=== PATIENT | male | born 1970 | race Caucasian/White ===

== ENCOUNTER 2017-01-05 17:12 | Emergency (ER) | payer OTHER ==
[2017-01-05] MEDS ORDERED: IBUPROFEN 600 MG TAB PO STA (17:38)
[2017-01-05] MEDS ORDERED: KETOROLAC TROMETHAMINE 60 MG/2 ML VIAL IM STA (17:43)
--- NOTE | 2017-01-05 17:50 | EMERGENCY ROOM VISIT NOTE ---
ED Visit Note First contact with patient: 17:21 CHIEF COMPLAINT: Shoulder injury HISTORY OF PRESENT ILLNESS: This 46-year-old male presents to the emergency department with complaint of right shoulder pain. He states that he was working in the barn when a bale of hay fell, he states he reached out trying to catch it and it landed on his arm and shoulder causing immediate pain in the right shoulder. He states that he has still been using his arm minimally since the injury 4 days ago, however the pain has been getting progressively worse. Today he went to see a chiropractor who took an x-ray and thought that his shoulder might be dislocated, tried to "put it back in" but the patient states he was in too much pain and this was unsuccessful, therefore he was sent to the emergency department for further management. Patient denies any numbness or tingling in the arm or hand. There is marked limitation of motion of the arm because of the pain. The patient did not hear a cracking the sound at the time of the injury. The pain is steady and severe and much worse with movement of the arm. He denies any other associated injuries. He did not take any medications for the pain. He last ate and drank at 12pm today. REVIEW OF SYSTEMS: Head: No headache or injury. Neck: No pain, stiffness, or swelling. Neurological: No headache, new changes in mental status, vertigo , focal weakness, numbness. Cardiovascular: No chest pain or palpitations. Respiratory: No cough or shortness of breath. PMH: The patient is healthy; there is no significant medical or surgical history. SOCIAL HISTORY: Patient lives at home. Non-smoker, no alcohol use. He identifies as Rastafari. PHYSICAL EXAM: Vital Signs: Reviewed nurse's notes, vital signs stable. GENERAL : Pleasant and cooperative, in no acute distress, but appears to be in pain, well-developed, well-nourished. MUSCULOSKELETAL: There is no deformity in the contour of the right shoulder and there are no vee deformities noted. There is no sulcus sign. There is tenderness over the anterior and lateral shoulder to palpation. The patient's range of motion is significantly limited due to pain. Supraspinatus strength 2/5. There is no clavicle tenderness. No tenderness of the humerus, elbow, wrist, or hand. Radiocommunications Technician strength 5/5. Radial pulse 2+. NECK: No tenderness to palpation over the cervical spine. Full range of motion of the neck without pain. HEART: Regular rate and rhythm without murmurs gallops or rubs. LUNGS: Clear to auscultation bilaterally without wheezes, rales or rhonchi. No accessory muscle use. No retractions. NEURO: The patient is alert and oriented to person, place, and time. Normal sensation to light and sharp touch. Capillary refill less than 2 seconds. IMAGING: R SHOULDER MIN 2 VIEWS ROUTINE, R CLAVICLE, R HUMERUS MIN 2 VIEWS ROUTINE HISTORY: 46 years-old Male possible dislocation of shoulder, AC joint, fracture acute right shoulder and right arm pain COMPARISON: None available TECHNIQUE: 3 views of the right shoulder, 2 views of the right clavicle and 2 views of the right humerus FINDINGS: SHOULDER: Linear 2.0 x 0.4 cm calcification adjacent to the greater tuberosity of the proximal humerus suggests rotator cuff calcific tendinosis, possibly infraspinatus. Mild glenohumeral and acromioclavicular osteoarthritis. No acute fracture or dislocation identified. No opaque foreign body. CLAVICLE: No acute fracture or dislocation. Imaged lung lei are clear. HUMERUS: There is no acute fracture or dislocation. Imaged lung lei appear clear. No opaque foreign body. IMPRESSION: 1. No acute fracture or dislocation of the right shoulder, clavicle or humerus. 2. Mild glenohumeral and acromioclavicular osteoarthritis. 3. Rotator cuff calcific tendinosis of the right shoulder, possibly the infraspinatus. EMERGENCY DEPARTMENT COURSE: I examined the patient. Differential diagnosis includes contusion, hematoma, dislocation, fracture, AC joint separation, rotator cuff injury, tendinitis/tendinopathy, among others. The patient was given IM Toradol for pain management and kept nothing by mouth in case of dislocation. An X-ray of the right clavicle, humerus, and shoulder were reviewed by myself and radiologist and show findings consistent with rotator cuff tendinosis/tendinitis, no acute fracture, no dislocation. On reexamination , the patient states his pain is improved after the Toradol. Patient has continued weakness and pain on examination of the infraspinatus and supraspinatus, unable to abduct the shoulder greater than 90. Given his exam findings, I am concerned for a rotator cuff tear in addition to the findings of tendinosis. The patient was placed in a sling for comfort and was given orthopedic referral information for close follow-up. The patient verbalized understanding of all follow-up plans. Patient was discharged home in stable condition and ambulatory. Problem List No known medical problems Current/Historical Medications No Active Prescriptions or Reported Meds Allergies Coded Allergies: No Known Allergies (Unverified , 01/05/17) Vital Signs Date Time Temp Pulse Resp B/P (MAP) Pulse Ox O2 Delivery O2 Flow Rate FiO2 01/05/17 20:29 78 16 118/76 98 01/05/17 18:48 72 20 134/76 98 Room Air 01/05/17 17:17 37.1 83 20 122/83 98 Room Air Medications Administered Medications (Trade) Dose Ordered Sig/Cy Route Start Time Stop Time Status Last Admin Dose Admin Ketorolac Tromethamine (Toradol Inj) 60 mg NOW STAT IM 01/05/17 17:43 01/05/17 17:44 DC 01/05/17 17:51 60 MG Departure Information Impression Primary Impression: Rotator cuff tendinitis Additional Impression: Rotator cuff tear, right Dispostion Home / Self-Care Condition GOOD Prescriptions No Active Prescriptions or Reported Meds Referrals No Doctor, Assigned (PCP) Daren Pitts D.Abdiel. Patient Instructions ED Tendinitis Rotator Cuff, ED Torn Rotator Cuff, [facility] Additional Instructions You have been treated in the Emergency Department for Shoulder Pain. Rest your arm in the sling until the pain is completely improved. For pain control, you can use the following [id number] medicines (if >12 yo): -Extra strength (500 mg/tab) Tylenol (acetaminophen) 2 tabs every 8 hours as needed. Do not exceed 6 tablets in a 24 hour period. Avoid taking more than 3000 mg of Tylenol per day. This includes any other sources of acetaminophen you may take on a regular basis. - Regular strength (200 mg/tab) Advil (ibuprofen) 3 tabs every 6-8 hours as needed. Do not exceed a dose of 2400 mg per day. Apply ice to your shoulder for the next 2-3 days to help decrease pain and inflammation. After that, you may apply moist heat to the area for comfort. You have been provided the number for an Orthopaedic Surgeon. You should call this number as soon as possible to establish a follow-up visit within the next 5 -7 days. Return to the Emergency Department if you develop any of the following symptoms : Severe worsening pain that is not treated with medications, chest pain, shortness of breath, numbness or tingling of the arm, or any other concerns. Problem Qualifiers Primary Impression: Rotator cuff tendinitis Laterality: right Qualified Codes: M75.81 - Other shoulder lesions, right shoulder Additional Impression: Rotator cuff tear, right Rotator cuff tear extent: unspecified tear extent Qualified Codes: M75.101 - Unspecified rotator cuff tear or rupture of right shoulder, not specified as traumatic
--- NOTE | 2017-01-05 18:42 | DIAGNOSTIC IMAGING REPORT ---
R SHOULDER MIN 2 VIEWS ROUTINE, R CLAVICLE, R HUMERUS MIN 2 VIEWS ROUTINE HISTORY: 46 years-old Male possible dislocation of shoulder, AC joint, fracture acute right shoulder and right arm pain COMPARISON: None available TECHNIQUE: 3 views of the right shoulder, 2 views of the right clavicle and 2 views of the right humerus FINDINGS: SHOULDER: Linear 2.0 x 0.4 cm calcification adjacent to the greater tuberosity of the proximal humerus suggests rotator cuff calcific tendinosis, possibly infraspinatus. Mild glenohumeral and acromioclavicular osteoarthritis. No acute fracture or dislocation identified. No opaque foreign body. CLAVICLE: No acute fracture or dislocation. Imaged lung lei are clear. HUMERUS: There is no acute fracture or dislocation. Imaged lung lei appear clear. No opaque foreign body. IMPRESSION: 1. No acute fracture or dislocation of the right shoulder, clavicle or humerus. 2. Mild glenohumeral and acromioclavicular osteoarthritis. 3. Rotator cuff calcific tendinosis of the right shoulder, possibly the infraspinatus. The above report was generated using voice recognition software. It may contain grammatical, syntax or spelling errors. Electronically signed by: Marco Arndt M.D. 01/05/2017 6:41 PM Dictated Date/Time: 01/05/2017 6:37 PM
[2017-01-05 20:29] VITALS: BP 118/76; PULSE 78; O2SAT 98
== END 2017-01-05 20:30 | disposition home or self-care (01) ==
LOC: C.EDB 17:14 → C.EDD 20:30
DX: S46.011A Strain of muscle(s) and tendon(s) of the rotator cuff of right shoulder, initial encounter (principal); W20.8XXA Other cause of strike by thrown, projected or falling object, initial encounter; Y92.71 Barn as the place of occurrence of the external cause; M75.31 Calcific tendinitis of right shoulder